=== PATIENT | male | born 2000 | race Caucasian/White ===

== ENCOUNTER 2022-11-13 12:15 | Emergency (ER) | payer OTHER ==
[~2022-11-13] VITALS: Ht 165.1 cm; Wt 73.7 kg
[2022-11-13 12:22] VITALS: BP 136/74
--- NOTE | 2022-11-13 12:27 | NUR ---
AMBULATED TO CHAIR
--- NOTE | 2022-11-13 12:30 | NUR ---
bibs for right palm of hand laceration x 15 min ago by vegetable slicer. slight bleeding noted. csmpt intact
[2022-11-13] MEDS ORDERED: LIDOCAINE OINTMENT 5% 35 GM TUBE TP ONE (13:00)
[2022-11-13] MEDS ORDERED: ACET-8905 PO (13:04)
[2022-11-13] MEDS ORDERED: CEPH-588 PO (13:04)
[2022-11-13] MEDS ORDERED: NAPR-1704 PO (13:04)
[2022-11-13] MEDS: BACITRACIN OINT 500 UNITS/GM PKT TP ONE ×2 (13:29→14:03)
--- NOTE | 2022-11-13 14:05 | NUR ---
RIGHT HAND, SITE CLEANED WITH NS, PAT DRY WITH BACITRACIN CREAM, WRAPPED IN NONADHERENT DRESSING APPLIED WITH GAUZE ROLL WRAPPED.
[2022-11-13 14:15] VITALS: BP 136/74
--- NOTE | 2022-11-13 14:15 | NUR ---
Patient discharged with v/s stable. Written and verbal after care instructions given and explained. Patient alert, oriented and verbalized understanding of instructions. Ambulatory with steady gait. All questions addressed prior to discharge. ID band removed. Patient advised to follow up with PMD. Rx of KEFELX, NAPROXEN, NORCO (SENT) given. Patient educated on indication of medication including possible reaction and side effects. Opportunity to ask questions provided and answered.
== END 2022-11-13 14:15 | disposition home or self-care (01) ==
LOC: MED 12:15
DX: S61.401A Unspecified open wound of right hand, initial encounter (principal); W27.4XXA Contact with kitchen utensil, initial encounter; Y92.89 Other specified places as the place of occurrence of the external cause; Y93.89 Activity, other specified; Y99.0 Civilian activity done for income or pay
CPT/HCPCS: 90471; 90715; 99283